=== PATIENT | female | born 1995 | race African-American/Black ===

== ENCOUNTER 2022-11-12 20:33 | Emergency (ER) | payer OTHER | END 2022-11-12 21:21 | disposition home or self-care (01) | LOC: ERS 20:33 | DX: S93.402A Sprain of unspecified ligament of left ankle, initial encounter (principal); M54.6 Pain in thoracic spine; Y93.21 Activity, ice skating | CPT/HCPCS: 99283 ==

== ENCOUNTER 2023-05-20 19:12 | Emergency (ER) | payer BC, SELFPAY | END 2023-05-20 20:55 | disposition home or self-care (01) | LOC: ERS 19:12 | DX: L02.811 Cutaneous abscess of head [any part, except face] (principal) | CPT/HCPCS: 99282 ==